=== PATIENT | male | born 1955 | race Caucasian/White ===

== ENCOUNTER → 2016-10-21 | Outpatient (CLI) | payer OTHER | LOC: CIMAGING 14:11 | PROVIDERS: ATTEND Orthopaedic Surgery | DX: M17.11 Unilateral primary osteoarthritis, right knee (principal); M71.21 Synovial cyst of popliteal space [Baker], right knee | CPT/HCPCS: 73700-PO ==

== ENCOUNTER → 2016-12-08 | Outpatient (CLI) | payer OTHER | LOC: FIMAGING 07:00 | PROVIDERS: ATTEND Orthopaedic Surgery | DX: Z01.818 Encounter for other preprocedural examination (principal); M17.11 Unilateral primary osteoarthritis, right knee; M16.11 Unilateral primary osteoarthritis, right hip ==

== ENCOUNTER 2016-12-12 09:57 | Inpatient (IN) | payer OTHER ==
--- NOTE | 2016-12-12 06:45 | PDIAF ---
- Diagnosis Diagnosis: right knee djd Code Status: Full Code - Medication Management Discharge Medications: Medications to Continue on Transfer ALPRAZolam [Xanax 0.5 MG (*)] 0.5 mg PO DAILY PRN 11/14/16 [Last Taken Unknown] Aspirin [Aspirin 81mg (*)] 81 mg PO DAILY 11/14/16 [Last Taken Unknown] Hydrocodone/APAP 5/325 [[place] 5/325 (*)] 1 each PO Q4H PRN 11/14/16 [Last Taken Unknown] Losartan/Hydrochlorothiazide [Hyzaar 100-25 Tablet] 1 each PO DAILY 11/14/16 [ Last Taken Unknown] Lovastatin 20 mg PO DAILY 11/14/16 [Last Taken Unknown] Metoprolol Succinate Xr [Toprol Xl 100 mg (*)] 100 mg PO DAILY 11/14/16 [Last Taken Unknown] amLODIPine BESYLATE [Norvasc 5 mg (*)] 5 mg PO DAILY 11/14/16 [Last Taken Unknown] celeCOXIB [Celebrex (*)] 200 mg PO DAILY 11/14/16 [Last Taken Unknown] Discharge Medications: Refer to the Discharge Home Medication list for PRN reason. - Orders Services needed: Physical Therapy Activity/Weight Bearing Restrictions: daily dressing changes. may shower without bandage. no soaking or immersion. wbat. rom as tolerated. seek attn for increasing leg pain, swelling, drainage, other focal complaint - Follow Up Care Current Providers and Referrals: NONE *PRIMARY CARE P,. [Primary Care Provider] -
--- NOTE | 2016-12-12 06:45 | PDHPUP ---
History & Physical Update H&P update statement: This history and physical update is based on an assessment of the patient which was completed after admission or registration (within 24 hours), but prior to the surgery/procedure.
[~2016-12-12 09:57] MED LIST: ROPIVACAINE 0.2% 80 MG, EPINEPHrine 0.2 MG, KETOROLAC TROMETHAMINE 30 MG, morphINE 10 M... IU ONE; TRANEXAMIC ACID 1,250 MG in NS 100 ML IV ONE; ceFAZolin 2 GM/DEXTROSE 100 ML IV ONE; ceFAZolin 2 GM/SWFI 2 GM/20 ML SYR IVP ONE
[2016-12-12] MEDS ORDERED: FAMOTIDINE 20 MG TAB PO ONE (10:17)
[2016-12-12] MEDS ORDERED: ACETAMINOPHEN 325 MG TAB PO ONE (10:17)
[2016-12-12] MEDS ORDERED: LIDOCAINE 1% 2 ML INJ ID PRN ×2 (10:20→10:36)
[2016-12-12] MEDS ORDERED: LR 1,000 ML IV ONE (10:20)
[2016-12-12] MEDS ORDERED: ceFAZolin 2 GM/SWFI 20 ML SYR IVP ONE (10:42)
[2016-12-12] MEDS ORDERED: THROMBIN (BOVINE) 5,000 UNIT VIAL TP ONE (11:53)
[2016-12-12] MEDS ORDERED: ceFAZolin 1 GM/5 ML SYR ONE ×2 (11:54→13:35)
[2016-12-12] MEDS ORDERED: CALCIUM CHLORIDE 1 GM/10 ML INJ ONE (11:54)
--- NOTE | 2016-12-12 12:07 | PDANEPAE ---
ANE Past Medical History - Cardiovascular History Hx Hypertension: Yes Hx Arrhythmias: No Hx Chest Pain: No Hx Coronary Artery / Peripheral Vascular Disease: No Hx CHF / Valvular Disease: No Hx Palpitations: No - Pulmonary History Hx COPD: No Hx Asthma/Reactive Airway Disease: No Hx Recent Upper Respiratory Infection: No Hx Oxygen in Use at Home: No Hx Sleep Apnea: No Sleep Apnea Screening Result - Last Documented: Positive - Neurologic History Hx Cerebrovascular Accident: No Hx Seizures: No Hx Dementia: No Neurologic History Comment: NEUROPATHY BRIT LE - Endocrine History Hx Diabetes: No - Renal History Hx Renal Disorders: No - Liver History Hx Hepatic Disorders: No - Neurological & Psychiatric Hx Hx Neurological and Psychiatric Disorders: No Neurological / Psychiatric History Comment: ANXIETY - Cancer History Hx Cancer: No - Congenital Disorder History Hx Congenital Disorders: No - GI History Hx Gastrointestinal Disorders: No - Other Health History Other Health History: SCIATICA - Chronic Pain History Chronic Pain: Yes (R KNEE) - Surgical History Prior Surgeries: 2006 L RTC. 2002 VASECTOMY ANE Review of Systems Review of Systems: - Exercise capacity METS (RN): 4 METS ANE Patient History - Allergies Allergies/Adverse Reactions: No Known Allergies Allergy (Verified 11/14/16 12:20) - Home Medications Home Medications: ALPRAZolam [Xanax 0.5 MG (*)] 0.5 mg PO DAILY PRN 11/14/16 [Last Taken 1 Day Ago ~12/11/16] Aspirin [Aspirin 81mg (*)] 81 mg PO DAILY 11/14/16 [Last Taken 2 Weeks Ago ~11/06] Hydrocodone/APAP 5/325 [[place] 5/325 (*)] 1 each PO Q4H PRN 11/14/16 [Last Taken 12/07/16] Losartan/Hydrochlorothiazide [Hyzaar 100-25 Tablet] 1 each PO DAILY 11/14/16 [ Last Taken 12/12/16 07:00] Lovastatin 20 mg PO DAILY 11/14/16 [Last Taken 12/12/16 07:00] Metoprolol Succinate Xr [Toprol Xl 100 mg (*)] 100 mg PO DAILY 11/14/16 [Last Taken 12/12/16 07:00] amLODIPine BESYLATE [Norvasc 5 mg (*)] 5 mg PO DAILY 11/14/16 [Last Taken 07:00] celeCOXIB [Celebrex (*)] 200 mg PO DAILY 11/14/16 [Last Taken 2 Weeks Ago ~11/28] - NPO status NPO Since - Liquids (Date): 12/12/16 NPO Since - Liquids (Time): 07:00 NPO Since - Solids (Date): 12/11/16 NPO Since - Solids (Time): 18:00 - Smoking Hx Smoking Status: Never smoked - Family Anes Hx Family Hx Anesthesia Complications: NEG ANE Labs/Vital Signs - Vital Signs Blood Pressure: 152/96 Heart Rate: 61 Respiratory Rate: 18 O2 Sat (%): 92 Height: 190.5 cm Weight: 124.738 kg ANE Physical Exam - Airway Mallampati Score: Class 2 - ASA Status ASA Status: II ANE Anesthesia Plan Anesthesia Plan: GA w LMA, spinal
[2016-12-12] MEDS ORDERED: fentaNYL 100 MCG/2 ML INJ ONE (12:17)
[2016-12-12] MEDS ORDERED: MIDAZOLAM 2 MG/2 ML VIAL ONE (12:17)
[2016-12-12] MEDS ORDERED: PROPOFOL 200 MG/20 ML VIAL ONE (12:18)
[2016-12-12] MEDS ORDERED: traMADol 50 MG TAB PO PRN (12:32)
[2016-12-12] MEDS ORDERED: MAGNESIUM HYDROXIDE 30 ML UDCUP PO PRN (12:32)
[2016-12-12] MEDS ORDERED: LACTULOSE 20 GM/30 ML UDCUP PO PRN (12:32)
[2016-12-12] MEDS ORDERED: PROMETHAZINE HCL 25 MG SUPPR PR PRN (12:32)
[2016-12-12] MEDS ORDERED: POLYETHYLENE GLYCOL 3350 17 GM PKT PO PRN (12:32)
[2016-12-12] MEDS ORDERED: METOCLOPRAMIDE 10 MG/2 ML VIAL IVP PRN (12:32)
[2016-12-12] MEDS ORDERED: BISACODYL 10 MG SUPP PR PRN (12:32)
[2016-12-12] MEDS ORDERED: PROMETHAZINE HCL 25 MG/ML INJ IVP PRN (12:32)
[2016-12-12] MEDS ORDERED: ONDANSETRON 4 MG/2 ML VIAL IVP PRN (12:32)
[2016-12-12] MEDS ORDERED: ONDANSETRON DISINTEGRATING 4 MG TAB PO PRN (12:32)
[2016-12-12] MEDS ORDERED: DIPHENOXYLATE/ATROPINE LOMOTIL 1 TAB PO PRN (12:32)
[2016-12-12] MEDS ORDERED: diphenhydrAMINE 25 MG CAP PO PRN (12:32)
[2016-12-12] MEDS ORDERED: TEMAZEPAM 15 MG CAP PO PRN (12:32)
[2016-12-12] MEDS ORDERED: ALPRAZolam 0.5 MG TAB PO PRN (12:33)
[2016-12-12] MEDS ORDERED: PHENYLEPHRINE HCL 100 MCG/ML SYR ONE (12:42)
[2016-12-12] MEDS ORDERED: LR 1,000 ML IV SCH (13:00)
[2016-12-12] MEDS ORDERED: ceFAZolin 2 GM/DEXTROSE 100 ML IV SCH (14:00)
[2016-12-12] MEDS ORDERED: ONDANSETRON 4 MG/2 ML VIAL ONE (14:10)
[2016-12-12] MEDS ORDERED: METOCLOPRAMIDE 10 MG/2 ML VIAL ONE (14:10)
[2016-12-12] MEDS ORDERED: LR 500 ML IV PRN (14:23)
[2016-12-12] MEDS ORDERED: fentaNYL 100 MCG/2 ML INJ IVP PRN (14:23)
[2016-12-12] MEDS ORDERED: NALOXONE HCL 0.4 MG/ML INJ IVP PRN (14:23)
--- NOTE | 2016-12-12 14:24 | POSTANESTH ---
Post Anesthetic Evaluation Cardiovascular Status: Normal, Stable Respiratory Status: Normal, Stable Level of Consciousness/Mental Status: Can Participate in Eval Pain Control: Adequate, Prn Tx Ordered Nausea/Vomiting Control: Adequate, Prn Tx Ordered Complications Possibly Related to Anesthesia: None Noted
--- NOTE | 2016-12-12 16:51 | ASMTCMCOM ---
CM Note CM Note Notes: Patient had R TKA with Dr Marshall today. PT/OT to evaluate tomorrow. Patient lives independently with . CM will follow for discharge planning. Date Signed: 12/12/2016 04:51 PM Electronically Signed By:Susan Mathew RN
[2016-12-12] MEDS: ACETAMINOPHEN 325 MG TAB PO SCH ×2 (17:01→23:04)
[2016-12-12] MEDS: oxyCODONE IR 5 MG TAB PO PRN ×3 (17:06→23:04)
[2016-12-12] MEDS: TRANEXAMIC ACID 650 MG TAB PO SCH ×2 (17:21→20:22)
[2016-12-12] MEDS: ceFAZolin 2 GM in D5W 100 ML IV SCH (20:21)
[2016-12-12] MEDS: SENNOSIDES/DOCUSATE SODIUM TAB PO SCH (20:22)
[2016-12-12] MEDS: FAMOTIDINE 20 MG TAB PO SCH (20:23)
[2016-12-12] MEDS: ASPIRIN 325 MG TAB PO SCH (20:38)
[2016-12-13] MEDS: DIAZEPAM 5 MG TAB PO PRN ×2 (02:25→16:52)
[2016-12-13] MEDS: oxyCODONE IR 5 MG TAB PO PRN ×6 (02:25→19:54)
[2016-12-13] MEDS: HYDROCODONE/APAP 5/325 TAB PO PRN ×2 (05:13→05:16)
[2016-12-13] MEDS: TRANEXAMIC ACID 650 MG TAB PO SCH (05:15)
[2016-12-13] MEDS: ACETAMINOPHEN 325 MG TAB PO SCH ×3 (05:16→16:52)
[2016-12-13] MEDS: ceFAZolin 2 GM in D5W 100 ML IV SCH (05:17)
[2016-12-13 05:30] LABS: HEMATOCRIT 37.5 % (40.0-51.0); HEMOGLOBIN 12.8 g/dL (13.7-17.5)
--- NOTE | 2016-12-13 07:35 | SOAPPROG ---
SOAP Progress Note Assessment/Plan: Assessment: s/p right tka Plan:pain control wbat mobilize with pt dvt precautions 12/13/16 07:33 Subjective: pain overnight no cp or sob Objective: Vital Signs Temp Pulse Resp BP Pulse Ox 36.8 C 64 16 100/60 93 12/13/16 03:01 12/13/16 03:01 12/13/16 03:01 12/13/16 03:01 12/13/16 03:01 Laboratory Results 12/13/16 05:15 12/12/16 12/13/16 12/14/16 05:59 05:59 05:59 Intake Total 4498 Output Total 1600 Balance 2898 dressing intact intact pf,df,ehl toes warm and pink neg homans bilaterally xrays stable anatomic alignment no fx or lucency ICD10 Worksheet Patient Problems: Problems Problem Status Onset Arthritis of knee, right Acute - ICD10 Problem Qualifiers (1) Arthritis of knee, right
[2016-12-13] MEDS: PRAVASTATIN SODIUM 20 MG TAB PO SCH (08:24)
[2016-12-13] MEDS: LOSARTAN/HCTZ 50/12.5 1 TAB PO SCH (08:24)
[2016-12-13] MEDS: amLODIPine BESYLATE 5 MG TAB PO SCH (08:24)
[2016-12-13] MEDS: FAMOTIDINE 20 MG TAB PO SCH ×2 (08:25→19:55)
[2016-12-13] MEDS: ASPIRIN 325 MG TAB PO SCH (08:25)
[2016-12-13] MEDS: METOPROLOL SUCCINATE XR 50 MG TAB PO SCH (08:25)
[2016-12-13] MEDS: SENNOSIDES/DOCUSATE SODIUM TAB PO SCH ×2 (08:25→19:54)
[2016-12-14] MEDS: ACETAMINOPHEN 325 MG TAB PO SCH ×3 (01:27→12:10)
[2016-12-14] MEDS: DIAZEPAM 5 MG TAB PO PRN (01:30)
[2016-12-14 04:47] LABS: HEMATOCRIT 37.6 % (40.0-51.0); HEMOGLOBIN 12.8 g/dL (13.7-17.5)
[2016-12-14] MEDS: oxyCODONE IR 5 MG TAB PO PRN ×3 (05:35→12:09)
--- NOTE | 2016-12-14 06:57 | PDIAF ---
- Diagnosis Diagnosis: right knee djd Code Status: Full Code - Medication Management Discharge Medications: Medications to Continue on Transfer ALPRAZolam [Xanax 0.5 MG (*)] 0.5 mg PO DAILY PRN 11/14/16 [Last Taken 1 Day Ago ~12/11/16] Aspirin [Aspirin 81mg (*)] 81 mg PO DAILY 11/14/16 [Last Taken 2 Weeks Ago ~11/06] Hydrocodone/APAP 5/325 [[place] 5/325 (*)] 1 each PO Q4H PRN 11/14/16 [Last Taken 12/07/16] Losartan/Hydrochlorothiazide [Hyzaar 100-25 Tablet] 1 each PO DAILY 11/14/16 [ Last Taken 12/12/16 07:00] Lovastatin 20 mg PO DAILY 11/14/16 [Last Taken 12/12/16 07:00] Metoprolol Succinate Xr [Toprol Xl 100 mg (*)] 100 mg PO DAILY 11/14/16 [Last Taken 12/12/16 07:00] amLODIPine BESYLATE [Norvasc 5 mg (*)] 5 mg PO DAILY 11/14/16 [Last Taken 07:00] celeCOXIB [Celebrex (*)] 200 mg PO DAILY 11/14/16 [Last Taken 2 Weeks Ago ~11/28] Aspirin [Aspirin 325 mg (*)] 325 mg PO DAILY tab 12/14/16 [Last Taken Unknown] Diazepam [Valium 5 MG (*)] 5 mg PO Q6HRS PRN #30 tab 12/14/16 [Last Taken Unknown] celeCOXIB [Celebrex (*)] 200 mg PO DAILY cap 12/14/16 [Last Taken Unknown] oxyCODONE CR [Oxycontin] 10 mg PO BID #30 tab 12/14/16 [Last Taken Unknown] oxyCODONE IR [Oxycodone Ir (*)] 5 - 10 mg PO Q3HRS PRN #90 tab 12/14/16 [Last Taken Unknown] Discharge Medications: Refer to the Discharge Home Medication list for PRN reason. - Orders Services needed: Physical Therapy Diet Recommendation: no restrictions on diet Diet Texture: Regular Texture Diet Activity/Weight Bearing Restrictions: daily dressing changes. may shower without bandage. no soaking or immersion. wbat. rom as tolerated. seek attn for increasing leg pain, swelling, drainage, other focal complaint - Follow Up Care Current Providers and Referrals: NONE *PRIMARY CARE P,. [Unknown] -
[2016-12-14 07:34] VITALS: RESP 16
--- NOTE | 2016-12-14 07:41 | GDS ---
[f rep st] DISCHARGE SUMMARY ADMITTING DIAGNOSIS: Right knee degenerative joint disease. DISCHARGE DIAGNOSIS: Right knee degenerative joint disease. PROCEDURE: Right total knee arthroplasty, MAKOplasty. HISTORY OF PRESENT ILLNESS: The patient is a 61-year-old gentleman with end-stage arthritis to his r ight knee. Clinical and radiographic features consistent with this. He has failed all attempts at c onservative management. I have, therefore, recommended total knee replacement. He understood the ri sks, benefits, alternatives, and wished to proceed. Written consent was signed and placed in patient 's chart. HOSPITAL COURSE: The patient was admitted to the hospital floor after uncomplicated total knee arthr oplasty. His postoperative course was characterized by poor pain control. At the time of discharge, he is tolerating an oral diet. His pain is well controlled on oral medicines. He is voiding withou t difficulty. His dressings are clean, dry, and intact. He has no calf swelling or tenderness. Neg ative Homans. X-rays are stable with anatomic alignment. DISCHARGE ACTIVITIES: Weightbearing as tolerated. Range of motion as tolerated. Daily dressing rohit nges. May shower without the bandage. No soaking or immersion. DUANE hose x2 weeks. DISCHARGE MEDICATIONS: Oxycodone 5 mg 1-2 every 3 hours p.r.n. pain, OxyContin 10 mg p.o. b.i.d., as pirin 325 mg p.o. daily, Valium 5 mg 1 p.o. q.8 hours, and his regular outpatient medicines. FOLLOWUP: Follow up in the orthopedic clinic in 2 weeks. Seek attention for increasing redness, swe lling, drainage, discharge, or other focal complaints. /[id number]/MODL
[2016-12-14] MEDS: FAMOTIDINE 20 MG TAB PO SCH (08:58)
[2016-12-14] MEDS: METOPROLOL SUCCINATE XR 50 MG TAB PO SCH (08:58)
[2016-12-14] MEDS: LOSARTAN/HCTZ 50/12.5 1 TAB PO SCH (08:58)
[2016-12-14] MEDS: SENNOSIDES/DOCUSATE SODIUM TAB PO SCH (08:58)
[2016-12-14] MEDS: PRAVASTATIN SODIUM 20 MG TAB PO SCH (08:59)
[2016-12-14] MEDS: ASPIRIN 325 MG TAB PO SCH (08:59)
[2016-12-14] MEDS: amLODIPine BESYLATE 5 MG TAB PO SCH (08:59)
[2016-12-14 11:38] VITALS: BP 115/85; PULSE 80; TEMP 98.3; O2SAT 91
--- NOTE | 2016-12-14 11:44 | PDIAF ---
- Diagnosis Diagnosis: right knee djd Code Status: Full Code - Medication Management Discharge Medications: Medications to Continue on Transfer ALPRAZolam [Xanax 0.5 MG (*)] 0.5 mg PO DAILY PRN 11/14/16 [Last Taken 1 Day Ago ~12/11/16] Aspirin [Aspirin 81mg (*)] 81 mg PO DAILY 11/14/16 [Last Taken 2 Weeks Ago ~11/06] Hydrocodone/APAP 5/325 [[place] 5/325 (*)] 1 each PO Q4H PRN 11/14/16 [Last Taken 12/07/16] Losartan/Hydrochlorothiazide [Hyzaar 100-25 Tablet] 1 each PO DAILY 11/14/16 [ Last Taken 12/12/16 07:00] Lovastatin 20 mg PO DAILY 11/14/16 [Last Taken 12/12/16 07:00] Metoprolol Succinate Xr [Toprol Xl 100 mg (*)] 100 mg PO DAILY 11/14/16 [Last Taken 12/12/16 07:00] amLODIPine BESYLATE [Norvasc 5 mg (*)] 5 mg PO DAILY 11/14/16 [Last Taken 07:00] celeCOXIB [Celebrex (*)] 200 mg PO DAILY 11/14/16 [Last Taken 2 Weeks Ago ~11/28] Aspirin [Aspirin 325 mg (*)] 325 mg PO DAILY tab 12/14/16 [Last Taken Unknown] Diazepam [Valium 5 MG (*)] 5 mg PO Q6HRS PRN #30 tab 12/14/16 [Last Taken Unknown] celeCOXIB [Celebrex (*)] 200 mg PO DAILY cap 12/14/16 [Last Taken Unknown] oxyCODONE CR [Oxycontin] 10 mg PO BID #30 tab 12/14/16 [Last Taken Unknown] oxyCODONE IR [Oxycodone Ir (*)] 5 - 10 mg PO Q3HRS PRN #90 tab 12/14/16 [Last Taken Unknown] Discharge Medications: Refer to the Discharge Home Medication list for PRN reason. - Orders Services needed: Home Care, Physical Therapy Home Care Face to Face: I certify that this patient was under my care and that I had the required [id number] encounter meeting the encounter requirements on the discharge day. My findings support the fact that the patient is homebound as defined in Home Care Face to Face Continued: CMS Chapter 7 Medicare Benefits Manual 30.1.1 , The condition of the patient is such that there exists a normal inability to leave home and consequently, leaving home would require a considerable and taxing effort. Diet Recommendation: no restrictions on diet Diet Texture: Regular Texture Diet Activity/Weight Bearing Restrictions: daily dressing changes. may shower without bandage. no soaking or immersion. wbat. rom as tolerated. seek attn for increasing leg pain, swelling, drainage, other focal complaint - Follow Up Care Current Providers and Referrals: NONE *PRIMARY CARE P,. [Unknown] -
--- NOTE | 2016-12-14 14:10 | ASMTCMCOM ---
CM Note CM Note Notes: Spoke with pt re homecare options. [facility] his insurance. Sent referral and they are able to accept. Pt discharging home today. Date Signed: 12/14/2016 02:10 PM Electronically Signed By:MAISHA Waller
--- NOTE | 2016-12-14 14:11 | ASDISCHSUM ---
Discharge Information Plan Status:Home with Home Health Medically Cleared to Leave:12/14/2016 Discharge Date:12/14/2016 12:15 PM D/C Disposition:[facility]/C Disposition:Home, Routine, Self-Care Projected Discharge Date:12/14/2016 11:00 AM Transportation at D/C:Family Discharge Delay Reason: Follow-Up Date:12/14/2016 11:00 AM Discharge Slot: Final Diagnosis: Placement Information Referral Type:*Home Health Care Services Referral ID:[id number] Provider Name:[facility] Address 1:[address] Address 2: City:[place] Selection Factors: State:[place] Patient Contact Information Contact Name:LILLIE Relationship: Address:[address] City:[place] Alternate Phone: State/Zip Code:[place] [address] Email: Financial Information Financial Class:HMO and PPO Plans Primary Plan Desc:HMO [place] [employer] Primary Plan Number:[id number] Secondary Plan Desc: Secondary Plan Number: Assessment Information [facility] Progress Note CM Note CM Note Notes: Patient had R TKA with Dr Marshall today. PT/OT to evaluate tomorrow. Patient lives independently with . CM will follow for discharge planning. Date Signed: 12/12/2016 04:51 PM Electronically Signed By:Susan Mathew RN [facility] CM Progress Note CM Note CM Note Notes: Spoke with pt re homecare options. [facility] takes his insurance. Sent referral and they are able to accept. Pt discharging home today. Date Signed: 12/14/2016 02:10 PM Electronically Signed By:MAISHA Waller Intervention Information
--- NOTE | 2016-12-16 15:38 | GOP ---
[f rep st] OPERATIVE REPORT DATE OF OPERATION: 12/12/2016 SURGEON: Chaka Marshall MD MACERATOR OPERATOR: Martin Gregory, CASING COOKER, [facility]; clinical research assistant was medical necessity for the entirety of shanna subramanian case. PREOPERATIVE DIAGNOSIS: Right knee arthritis. POSTOPERATIVE DIAGNOSIS: Right knee arthritis. PROCEDURE PERFORMED: Right total knee arthroplasty, MAKOplasty. FINDINGS: SPECIMENS: To Pathology, the bony cuts. DESCRIPTION OF PROCEDURE: The patient was identified in the preanesthesia area. The right knee was clearly demarcated as the operative site with indelible marker. He was given 2 g of Ancef intravenou sly en route to the operative suite. In the OR, general endotracheal anesthesia was administered aft er placement of a spinal block. He was positioned in the supine position. Attention was turned to t moris right knee, which was sterilely prepped and draped in usual fashion. A tourniquet was applied to the upper thigh. The limb was exsanguinated, and tourniquet inflated to 275 mmHg. A standard anterior midline incision was made. Thick subcutaneous flaps were elevated, followed by m edial parapatellar arthrotomy. There was tricompartmental arthritis, and the decision was made to pr oceed with a total knee replacement. Separate percutaneous incisions were made in the mid femur and mid sharp, and 2 guide pins were placed in each area. The femoral and tibial reference arrays were th en affixed. Femoral and tibial reference check points were then placed. The bony landmarks were the n entered into the computer in standard fashion. The knee was balanced through the flexion-extension arc with soft tissue release and adjustment of the components. Using the MAKOplasty robot, the femo ral and tibial cuts were then made. A size 5 femur cutting block was then affixed, and the notch cut made. A trial reduction with a size 5 femur revealed appropriate positioning and alignment. A size 6 tibial base plate was then pinned in the correct orientation. The central pins were then placed, and trial reduction carried out over a 6 x 9 mm thick polyethylene insert. The patella was then ever judy, cut in a freehand cutting technique, and drill holes made for a size 38 all poly patella. The k nee tracked centrally, was stable through the flexion/extension arc. All trial components were withd rawn. The bony surfaces were thoroughly cleansed and dried. In a sequential fashion, the tibial, fe moral and patellar components were cemented. A final 6 x 9 mm polyethylene insert was placed and con firmed to be fully seated. All marginal cement was withdrawn. The capsular tissue was injected with a joint cocktail of ropivacaine, morphine, Toradol, and epineph rine. The medial parapatellar arthrotomy closed using #1 Ethibond suture. The knee instilled with a platelet-rich plasma solution. Subcutaneous tissue closed using Quill and Monocryl suture, and the skin was stapled. Sterile dressing was applied. The patient was awakened, extubated, and taken to r ecovery room in good, stable condition. OPERATIVE INDICATIONS: The patient is a 61-year-old gentleman who has end-stage arthritis to his rig ht knee. Clinical and radiographic features are consistent with this. He has failed all attempts at conservative management. I have, therefore, recommended total knee replacement. He understood the risks, benefits, alternatives, and wished to proceed. Written consent was signed and placed in arnaldo jang's chart. TOTAL TOURNIQUET TIME: 65 minutes. COMPLICATIONS: None. IMPLANTS: The Wendy Triathlon PS femoral component, size 5; size 6 tibial base plate; X3 tibial be aring insert, 6 x 9 mm; Triathlon X3 asymmetric patella, size A38, 11 mm thick. DISPOSITION: To the recovery room, then the floor. /[id number]/MODL
== END 2016-12-14 12:15 | disposition home or self-care (01) | DRG 470 ==
LOC: F3N 10:05
PROVIDERS: ADMIT Orthopaedic Surgery; ATTEND Orthopaedic Surgery
PROC: 8E0Y0CZ Robotic Assisted Procedure of Lower Extremity, Open Approach (ICD-10-PCS; principal; 2016-12-12 13:00)
PROC: 0SRC0J9 Replacement of Right Knee Joint with Synthetic Substitute, Cemented, Open Approach (ICD-10-PCS; principal; 2016-12-12 13:00)
DX: M17.11 Unilateral primary osteoarthritis, right knee (principal); E78.5 Hyperlipidemia, unspecified; I10 Essential (primary) hypertension; E66.9 Obesity, unspecified; Z68.37 Body mass index [BMI] 37.0-37.9, adult
CPT/HCPCS: 97110-GP; 97116-GP; 97161-GP; 97165-GO; 97530-GP; 97535-GO; C1713; J0171; J0690; J1885; J2250; J2370; J2405; J2704; J2765; J2795; J3010

== ENCOUNTER → 2017-01-26 | Outpatient (CLI) | payer OTHER | LOC: BMCIMAGING 09:45 | PROVIDERS: ATTEND Orthopaedic Surgery | DX: Z96.651 Presence of right artificial knee joint (principal); M25.461 Effusion, right knee ==

== ENCOUNTER → 2017-03-07 | Outpatient (CLI) | payer OTHER | LOC: BMCIMAGING 10:34 | PROVIDERS: ATTEND Orthopaedic Surgery | DX: Z09 Encounter for follow-up examination after completed treatment for conditions other than malignant neoplasm (principal); Z96.651 Presence of right artificial knee joint ==

== ENCOUNTER → 2017-06-27 | Outpatient (CLI) | payer OTHER | LOC: BMCIMAGING 09:51 | PROVIDERS: ATTEND Orthopaedic Surgery | DX: Z47.1 Aftercare following joint replacement surgery (principal); Z96.651 Presence of right artificial knee joint ==

== ENCOUNTER → 2018-01-03 | Outpatient (CLI) | payer OTHER | LOC: BMCIMAGING 09:25 | PROVIDERS: ATTEND Orthopaedic Surgery | DX: Z47.1 Aftercare following joint replacement surgery (principal); Z96.651 Presence of right artificial knee joint ==

== ENCOUNTER 2018-02-05 11:41 | Inpatient (IN) | payer OTHER ==
--- NOTE | 2018-02-05 06:35 | PDHPUP ---
History & Physical Update H&P update statement: This history and physical update is based on an assessment of the patient which was completed after admission or registration (within 24 hours), but prior to the surgery/procedure. H&P update: no change in patient's condition since H&P completed
--- NOTE | 2018-02-05 06:36 | PDIAF ---
- Diagnosis Diagnosis: right knee pain Code Status: Full Code - Medication Management Discharge Medications: electronically signed and located in the Home Medication List. - Orders Services needed: Home Care, Physical Therapy Home Care Face to Face: I certify that this patient was under my care and that I had the required [id number] encounter meeting the encounter requirements on the discharge day. My findings support the fact that the patient is homebound as defined in Home Care Face to Face Continued: CMS Chapter 7 Medicare Benefits Manual 30.1.1 , The condition of the patient is such that there exists a normal inability to leave home and consequently, leaving home would require a considerable and taxing effort. Diet Recommendation: no restrictions on diet Diet Texture: Regular Texture Diet Additional Instructions: TOTAL JOINT ARTHROPLASTY DISCHARGE INSTRUCTIONS 1. Your surgeon follows the [facility] protocol for reducing your risk of DVT (blood clots) following surgery. Medication will be ordered to prevent blood clots. A sudden increase in calf pain and/or swelling could indicate a blood clot in your leg. If this occurs, please call your surgeon or his/her quality assistant. An ultrasound of the leg may be necessary to diagnose a blood clot. If you have conditions that make you a higher risk for blood clots, your surgeon may use more aggressive ways to prevent them. Notify your surgeon if you think you are a high risk for blood clots. 2. Wear your white surgical stockings (DUANE hose) for 2 weeks. This decreases your swelling and may help prevent blood clots. It is ok to remove DUANE hose at night time to give your legs a break. 3. Swelling and bruising in the surgical leg is common. If you feel that it is excessive, please notify your surgeon. 4. Elevate your surgical leg with the ankle above the hip several times every day. Please keep the leg straight when you elevate by putting pillows under your foot. Do not put pillows under your knee. This will make being able to fully straighten more difficult. This is uncomfortable, but try to do it as much as possible. 5. For total knee replacements use compressive wrap on your knee for 3-5 days after surgery, then you can discontinue it. 6. Use a walker or crutches for 1-2 weeks. Progress your weight-bearing as tolerated. You may start to use a cane when you feel stable and safe. 7. You will receive physical therapy instructions in the hospital. Continue those exercises at home. There are additional exercises in the total joint booklet you were given before surgery. Outpatient physical therapy will begin 7- 10 days after surgery. Please schedule this in advance. 8. Use ice on your knee at least 3-5 times every day for 30 minutes. This helps reduce pain and swelling. Also use it at night before falling asleep. 9. Leave your surgical dressing in place for 2 weeks. Your dressing is water resistant, but not waterproof. Cover it with Saran Wrap or [id number] before showering. You may shower as soon as you feel safe entering a shower. If you notice bleeding from your incision 2 or 3 days after surgery, please notify your surgeon. 10. Due to narcotics, decreased activity and altered diet, most patients experience constipation after surgery. Use tjjl-[id number] stool softeners while you are on narcotics. 11. You may drive a car when you are comfortable bearing weight, have good muscular control of your leg and are off narcotics. This usually occurs 2-4 weeks after surgery, depending on which leg was operated on. 12. If there are questions not addressed here, please refer the [facility] book given for more information. If you still have questions, please contact your surgeon s office. 13. If you have a life-threatening emergency, please call 911 and go to the emergency room immediately. For non-life threatening emergencies, please call your physicians office for advice before going to the emergency room. - Follow Up Care Current Providers and Referrals: Chaka Marshall MD [Medical Doctor] - Mc Dominique MD [Primary Care Provider] -
[~2018-02-05 11:41] MED LIST changes: +TRANEXAMIC ACID 1,000 MG in NS 100 ML IV ONE; -TRANEXAMIC ACID 1,250 MG in NS 100 ML IV ONE; +TRANEXAMIC ACID 2,000 MG in NS 100 ML IV ONE; -ceFAZolin 2 GM/DEXTROSE 100 ML IV ONE; -ceFAZolin 2 GM/SWFI 2 GM/20 ML SYR IVP ONE
[2018-02-05] MEDS ORDERED: FAMOTIDINE 20 MG TAB PO ONE (11:51)
[2018-02-05] MEDS ORDERED: ceFAZolin 2 GM/DEXTROSE 100 ML IV ONE (11:51)
[2018-02-05] MEDS ORDERED: ACETAMINOPHEN 325 MG TAB PO ONE (11:51)
[2018-02-05] MEDS ORDERED: LIDOCAINE 1% 2 ML INJ ID PRN (11:52)
[2018-02-05] MEDS ORDERED: LR 1,000 ML IV ONE (11:52)
[2018-02-05] MEDS ORDERED: ceFAZolin 3 GM in D5W 100 ML IV ONE (12:30)
[2018-02-05] MEDS ORDERED: ceFAZolin 1 GM/5 ML SYR ONE (13:18)
[2018-02-05] MEDS ORDERED: MIDAZOLAM 2 MG/2 ML VIAL IVP ONE (14:18)
--- NOTE | 2018-02-05 14:18 | PDANEPAE ---
ANE History of Present Illness R knee arthroplasty revision ANE Past Medical History - Cardiovascular History Hx Hypertension: Yes Hx Arrhythmias: No Hx Chest Pain: No Hx Coronary Artery / Peripheral Vascular Disease: No Hx CHF / Valvular Disease: No Hx Palpitations: No - Pulmonary History Hx COPD: No Hx Asthma/Reactive Airway Disease: No Hx Recent Upper Respiratory Infection: No Hx Oxygen in Use at Home: No Hx Sleep Apnea: No Sleep Apnea Screening Result - Last Documented: Positive Pulmonary History Comment: RECENT LUNG CONGESTION WAS SEEN BY PCP LUNGS CLEAR WITHOUT. 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 2006 L RTC. 2002 VASECTOMY ANE Review of Systems Review of systems is: negative Review of Systems: - Exercise capacity METS (RN): 4 METS ANE Patient History - Allergies Allergies/Adverse Reactions: No Known Allergies Allergy (Verified 11/14/16 12:20) - Home Medications Home medications: home medication list seen and reviewed Home Medications: ALPRAZolam [Xanax 0.5 MG (*)] 0.5 mg PO DAILY PRN 11/14/16 [Last Taken 02/03/18] amLODIPine BESYLATE [Norvasc 5 mg (*)] 5 mg PO DAILY 11/14/16 [Last Taken 07:00] Atorvastatin Calcium [Lipitor 10 mg (*)] 10 mg PO DAILY 01/26/18 [Last Taken 07:00] Ibuprofen [Motrin (*)] 400 - 600 mg PO DAILY PRN 01/26/18 [Last Taken 01/29/18] Losartan Potassium DAILY 02/02/18 [Last Taken 02/04/18 07:00] - NPO status NPO Since - Liquids (Date): 02/05/18 NPO Since - Liquids (Time): 08:45 NPO Since - Solids (Date): 02/04/18 NPO Since - Solids (Time): 18:00 - Anes Hx Anes Hx: no prior problems - Smoking Hx Smoking Status: Never smoked - Family Anes Hx Family Anes Hx: none Family Hx Anesthesia Complications: NEG ANE Labs/Vital Signs - Vital Signs Vital Signs: reviewed preoperatively; see RN documention for details Height: 190.5 cm Weight: 131.542 kg ANE Physical Exam - Airway Neck exam: FROM Mallampati Score: Class 3 - Pulmonary Pulmonary: no respiratory distress - Cardiovascular Cardiovascular: regular rate and rhythym - ASA Status ASA Status: III ANE Anesthesia Plan Anesthesia Plan: GA w LMA (AC block for post op pain discussed. Will avoid due to neuropathy.)
[2018-02-05] MEDS ORDERED: THROMBIN (BOVINE) 5,000 UNIT VIAL TP ONE (14:40)
[2018-02-05] MEDS ORDERED: CALCIUM CHLORIDE 1 GM/10 ML INJ ONE (14:40)
[2018-02-05] MEDS ORDERED: fentaNYL 100 MCG/2 ML INJ ONE (15:08)
[2018-02-05] MEDS ORDERED: DEXAMETHASONE 4 MG/ML VIAL ONE (15:08)
[2018-02-05] MEDS ORDERED: LIDOCAINE 2% 100 MG/5 ML SYR ONE (15:08)
[2018-02-05] MEDS ORDERED: ONDANSETRON 4 MG/2 ML VIAL ONE (15:08)
[2018-02-05] MEDS ORDERED: PROPOFOL 200 MG/20 ML VIAL ONE (15:09)
[2018-02-05] MEDS ORDERED: KETAMINE 200 MG/20 ML VIAL ONE (15:23)
[2018-02-05] MEDS ORDERED: HYDROmorphONE/DILAUDID 2 MG/ML INJ ONE ×2 (15:23→17:56)
[2018-02-05] MEDS ORDERED: PROMETHAZINE HCL 25 MG/ML INJ IVP PRN ×2 (15:49→16:39)
[2018-02-05] MEDS ORDERED: DIAZEPAM 5 MG/ML 1 ML SYR IVP PRN (15:49)
[2018-02-05] MEDS ORDERED: DEXAMETHASONE 4 MG/ML VIAL IVP PRN (15:49)
[2018-02-05] MEDS ORDERED: oxyCODONE IR 5 MG TAB PO PRN (15:49)
[2018-02-05] MEDS ORDERED: NALOXONE HCL 0.4 MG/ML INJ IVP PRN (15:49)
[2018-02-05] MEDS ORDERED: ONDANSETRON 4 MG/2 ML VIAL IVP PRN ×2 (15:49→16:39)
[2018-02-05] MEDS ORDERED: ACETAMINOPHEN 500 MG TAB PO PRN (15:49)
[2018-02-05] MEDS ORDERED: MEPERIDINE 25 MG/0.5 ML AMP IVP PRN (15:49)
[2018-02-05] MEDS ORDERED: LABETALOL HCL 20 MG/4 ML INJ IVP PRN (15:49)
[2018-02-05] MEDS ORDERED: HYDROCODONE/APAP 5/325 TAB PO PRN (15:49)
[2018-02-05] MEDS ORDERED: HYDROmorphONE/DILAUDID 2 MG/ML INJ IVP PRN (15:49)
--- NOTE | 2018-02-05 15:49 | POSTANESTH ---
Post Anesthetic Evaluation Cardiovascular Status: Similar to Pre-Op Cond Respiratory Status: Similar to Pre-op Cond. Level of Consciousness/Mental Status: Can Participate in Eval, Moderately Sleepy Pain Control: Adequate, Prn Tx Ordered Nausea/Vomiting Control: Adequate, Prn Tx Ordered Complications Possibly Related to Anesthesia: None Noted
[2018-02-05] MEDS ORDERED: diphenhydrAMINE 25 MG CAP PO PRN (16:39)
[2018-02-05] MEDS ORDERED: BISACODYL 10 MG SUPP PR PRN (16:39)
[2018-02-05] MEDS ORDERED: DIPHENOXYLATE/ATROPINE LOMOTIL 1 TAB PO PRN (16:39)
[2018-02-05] MEDS ORDERED: LACTULOSE 20 GM/30 ML UDCUP PO PRN (16:39)
[2018-02-05] MEDS ORDERED: CYCLOBENZAPRINE 10 MG TAB PO PRN (16:39)
[2018-02-05] MEDS ORDERED: PROMETHAZINE HCL 25 MG SUPPR PR PRN (16:39)
[2018-02-05] MEDS ORDERED: MAGNESIUM HYDROXIDE 30 ML UDCUP PO PRN (16:39)
[2018-02-05] MEDS ORDERED: TEMAZEPAM 15 MG CAP PO PRN (16:39)
[2018-02-05] MEDS ORDERED: METOCLOPRAMIDE 10 MG/2 ML VIAL IVP PRN (16:39)
[2018-02-05] MEDS ORDERED: ONDANSETRON DISINTEGRATING 4 MG TAB PO PRN (16:39)
[2018-02-05] MEDS ORDERED: POLYETHYLENE GLYCOL 3350 17 GM PKT PO PRN (16:39)
[2018-02-05] MEDS ORDERED: ALPRAZolam 0.5 MG TAB PO PRN (16:40)
--- NOTE | 2018-02-05 16:42 | POSTOPPROG ---
Post Op Note Date of Operation: 02/05/18 Surgeon: Chaka Marshall Butter Liquefier: soila Anesthesiologist: maria g Anesthesia: Spinal Pre-op Diagnosis: right tka failure Post-op Diagnosis: same Indication: same Procedure: right tka revision of tibial component Inf/Abcess present in the surg proc area at time of surgery?: No Depth: Deep Incisional (Fascial) EBL: 100-500
[2018-02-05] MEDS ORDERED: LR 1,000 ML IV SCH (17:00)
[2018-02-05] MEDS: fentaNYL 100 MCG/2 ML INJ IVP PRN ×2 (17:03→17:22)
[2018-02-05] MEDS ORDERED: oxyCODONE IR 5 MG TAB ONE (17:52)
[2018-02-05] MEDS: ACETAMINOPHEN 325 MG TAB PO SCH (18:50)
[2018-02-05] MEDS: FAMOTIDINE 20 MG TAB PO SCH (20:58)
[2018-02-05] MEDS: SENNOSIDES/DOCUSATE SODIUM TAB PO SCH (20:58)
[2018-02-05] MEDS: ASPIRIN 325 MG TAB PO SCH (21:06)
[2018-02-05] MEDS: oxyCODONE IR 5 MG TAB PO PRN (22:18)
[2018-02-05] MEDS ORDERED: VANCOMYCIN 2 GM in D5W 500 ML IV ONE (23:30)
[2018-02-06] MEDS: ACETAMINOPHEN 325 MG TAB PO SCH ×3 (01:17→12:06)
[2018-02-06] MEDS: TRANEXAMIC ACID 650 MG TAB PO SCH ×2 (01:17→08:38)
--- NOTE | 2018-02-06 07:15 | PDIAF ---
- Diagnosis Diagnosis: right knee pain Code Status: Full Code - Medication Management Discharge Medications: electronically signed and located in the Home Medication List. - Orders Services needed: Home Care, Physical Therapy Home Care Face to Face: I certify that this patient was under my care and that I had the required [id number] encounter meeting the encounter requirements on the discharge day. My findings support the fact that the patient is homebound as defined in Home Care Face to Face Continued: CMS Chapter 7 Medicare Benefits Manual 30.1.1 , The condition of the patient is such that there exists a normal inability to leave home and consequently, leaving home would require a considerable and taxing effort. Diet Recommendation: no restrictions on diet Diet Texture: Regular Texture Diet Additional Instructions: TOTAL JOINT ARTHROPLASTY DISCHARGE INSTRUCTIONS 1. Your surgeon follows the [facility] protocol for reducing your risk of DVT (blood clots) following surgery. Medication will be ordered to prevent blood clots. A sudden increase in calf pain and/or swelling could indicate a blood clot in your leg. If this occurs, please call your surgeon or his/her assistant farm operations manager. An ultrasound of the leg may be necessary to diagnose a blood clot. If you have conditions that make you a higher risk for blood clots, your surgeon may use more aggressive ways to prevent them. Notify your surgeon if you think you are a high risk for blood clots. 2. Wear your white surgical stockings (DUANE hose) for 2 weeks. This decreases your swelling and may help prevent blood clots. It is ok to remove DUANE hose at night time to give your legs a break. 3. Swelling and bruising in the surgical leg is common. If you feel that it is excessive, please notify your surgeon. 4. Elevate your surgical leg with the ankle above the hip several times every day. Please keep the leg straight when you elevate by putting pillows under your foot. Do not put pillows under your knee. This will make being able to fully straighten more difficult. This is uncomfortable, but try to do it as much as possible. 5. For total knee replacements use compressive wrap on your knee for 3-5 days after surgery, then you can discontinue it. 6. Use a walker or crutches for 1-2 weeks. Progress your weight-bearing as tolerated. You may start to use a cane when you feel stable and safe. 7. You will receive physical therapy instructions in the hospital. Continue those exercises at home. There are additional exercises in the total joint booklet you were given before surgery. Outpatient physical therapy will begin 7- 10 days after surgery. Please schedule this in advance. 8. Use ice on your knee at least 3-5 times every day for 30 minutes. This helps reduce pain and swelling. Also use it at night before falling asleep. 9. Leave your surgical dressing in place for 2 weeks. Your dressing is water resistant, but not waterproof. Cover it with Saran Wrap or Ihtmu-e-Kaap before showering. You may shower as soon as you feel safe entering a shower. If you notice bleeding from your incision 2 or 3 days after surgery, please notify your surgeon. 10. Due to narcotics, decreased activity and altered diet, most patients experience constipation after surgery. Use [id number] stool softeners while you are on narcotics. 11. You may drive a car when you are comfortable bearing weight, have good muscular control of your leg and are off narcotics. This usually occurs 2-4 weeks after surgery, depending on which leg was operated on. 12. If there are questions not addressed here, please refer the [facility] book given for more information. If you still have questions, please contact your surgeon s office. 13. If you have a life-threatening emergency, please call 911 and go to the emergency room immediately. For non-life threatening emergencies, please call your physicians office for advice before going to the emergency room. - Follow Up Care Current Providers and Referrals: Chaka Marshall MD [Medical Doctor] - Mc Dominique MD [Primary Care Provider] -
--- NOTE | 2018-02-06 07:16 | SOAPPROG ---
SOAP Progress Note Assessment/Plan: Assessment: s/p revision tka Plan:stable d/c home dvt precautions f/u at two weeks 02/06/18 07:15 Subjective: min pain no nausea no cp or sob Objective: Vital Signs Temp Pulse Resp BP Pulse Ox 36.6 C 62 16 121/78 H 93 02/06/18 04:00 02/06/18 04:00 02/06/18 04:00 02/06/18 04:00 02/06/18 04:00 Microbiology 02/05/18 15:45 Gram Stain - Final Knee - Aspirate 02/05/18 15:45 Gram Stain - Final Knee - Eswab 02/05/18 15:45 Mycobacterial Smear (RL) - Final Knee - Eswab Mycobacterial Culture - Final Laboratory Results 02/06/18 04:35 02/05/18 02/06/18 02/07/18 05:59 05:59 05:59 Intake Total 3700 Output Total 2650 Balance 1050 dressing intact intact pf,df,ehl toes warm and pink neg homans moriah xrays anatomic, no fx or lucency ICD10 Worksheet Patient Problems: Problems Problem Status Onset Arthritis of knee, right Acute
--- NOTE | 2018-02-06 07:49 | PDMN ---
Medical Necessity Medical necessity: [facility] [place]700 [place] OP: TKA --- AUTH [id number] APPROVED CPT 36765 IN PT IF MORE THAN ONE DAY MUST FAX ADDITIONAL CLINICAL INFORMATION TO [phone] MARILY
[2018-02-06 08:12] VITALS: BP 114/75
[2018-02-06] MEDS: oxyCODONE IR 5 MG TAB PO PRN ×2 (08:38→12:06)
[2018-02-06] MEDS: SENNOSIDES/DOCUSATE SODIUM TAB PO SCH (08:39)
[2018-02-06] MEDS: FAMOTIDINE 20 MG TAB PO SCH (08:39)
[2018-02-06] MEDS: ASPIRIN 325 MG TAB PO SCH (08:40)
[2018-02-06] MEDS ORDERED: amLODIPine BESYLATE 5 MG TAB PO SCH (09:00)
[2018-02-06] MEDS ORDERED: ATORVASTATIN CALCIUM 10 MG TAB PO SCH (09:00)
--- NOTE | 2018-02-06 10:21 | ASMTLACE ---
LACE Length of stay for Answers: 2 days current admission Acuity / Level of Answers: Yes Care: Did the patient have an inpatient admission? Comorbidities - select Answers: Opioid dependence all that apply / Chronic pain Other Notes: HTN # of Emergency department Answers: 0 visits in the last 6 months Social determinants Answers: Mental health diagnosis (anxiety, depression, pers onality disorders, etc.) Score: 13 Date Signed: 02/06/2018 10:21 AM Electronically Signed By:BE Scales
--- NOTE | 2018-02-06 10:24 | ASDISCHSUM ---
Discharge Information Plan Status:Home with Home Health Medically Cleared to Leave: Discharge Date: D/C Disposition:Home Health Service ADT D/C Disposition:Home Health Service Projected Discharge Date:02/06/2018 11:00 AM Transportation at D/C:Family Discharge Delay Reason: Follow-Up Date:02/06/2018 11:00 AM Discharge Slot: Final Diagnosis: Placement Information Referral Type:*Home Health Care Services Referral ID:[id number] Provider Name:[facility] Address 1:[address] Phone Number: Address 2: Fax Number: [facility]:[place] Selection Factors: State:[place] Patient Contact Information Contact Name:LILLIE Relationship: Address:[address] City:[place] Alternate Phone: State/[facility] Code:[place] [address] Email: Financial Information Financial Class:[facility] Primary Plan Desc:[employer] Primary Plan Number:[id number] Secondary Plan Desc: Secondary Plan Number: Assessment Information LACE LACE Length of stay for Answers: 2 days current admission Acuity / Level of Answers: Yes Care: Did the patient have an inpatient admission? Comorbidities - select Answers: Opioid dependence all that apply / Chronic pain Other Notes: HTN # of Emergency department Answers: 0 visits in the last 6 months Social determinants Answers: Mental health diagnosis (anxiety, depression, pers onality disorders, etc.) Score: 13 Date Signed: 02/06/2018 10:21 AM Electronically Signed By:BE Scales Case Management Discharge Plan Note Case Management Discharge Discharge Order Complete? Answers: Yes Patient to Obtain Answers: via Family Medications Transportation Arranged Answers: Family/Friends Faxed Final Orders Answers: Yes Agency/Facility Transfer Answers: Yes Report Printed & Faxed to Receiving Agency Family Notified Answers: Yes Discharge Comments Notes: CM met with pt and . Pt agreeable to homecare with [facility]. CM faxed discharge ppwk and confirmed appt. CM provided education on discharge plan, pts agreeable. No other CM needs identified. Family to transport. Date Signed: 02/06/2018 10:23 AM Electronically Signed By:BE Scales Intervention Information
--- NOTE | 2018-02-08 09:29 | GOP ---
DATE OF OPERATION: 02/05/2018 SURGEON: Chaka Marshall MD WARP DYEING TENDER: ANUJ Scott PREOPERATIVE DIAGNOSIS: Failed right total knee arthroplasty. POSTOPERATIVE DIAGNOSIS: Failed right total knee arthroplasty. PROCEDURE PERFORMED: Right total knee arthroplasty revision, tibial component. FINDINGS: SPECIMENS: To Pathology, none. INDICATIONS: The patient is a 62-year-old gentleman who is 1 year status post right total knee repla cement by myself. At that time, he had a 9 mm polyethylene spacer placed with a total knee replaceme nt. He has developed persistent pain and discomfort across his knee. Workup does not indicate any e vidence of infection. There is no evidence of gross mechanical loosening. He has slight asymmetry a nd laxity with varus and valgus stress. Given the persistent nature of his symptoms and laxity with varus and valgus stress, I have recommended revision of his tibial polyethylene spacer, soft tissue r emoval, and ligament balancing. I have outlined the surgical procedure, risks, benefits, and alterna tives. DESCRIPTION OF PROCEDURE: The patient was identified in the preanesthesia area. The right knee cristino rly demarcated as the operative site with an indelible marker. He was given 2 g of Ancef intravenous ly in route to the operative suite. In the OR, general endotracheal anesthesia was administered. At tention was turned to the right knee, which was sterilely prepped and draped in usual fashion. Tourn iquet was applied to the upper thigh. Appropriate time-out procedure was carried out. The limb was exsanguinated with an Esmarch bandage. Tourniquet inflated to 275 mmHg. The previous incision was opened in its entirety. The remaining Ethibond sutures were removed. The subperiosteal elevation was carried out to the mid coronal plane. The femoral and tibial components were examined thoroughly. There was no evidence of loosening or asymmetry. The polyethylene spacer was withdrawn. There was a great deal of scar tissue formation in the lateral gutter and lateral tib ial-femoral joint, which was sharply excised to a clean and stable edge. Soft tissue release was car ried out over the lateral aspect of the knee to balance the knee with a varus, valgus stress, and ult imately, a 13 mm polyethylene spacer was placed after trialing. This allowed full extension, flexion to 120 degrees. There was no instability to varus or valgus stress. The polyethylene was confirmed to be fully seated. The wound was copiously irrigated. The medial parapatellar arthrotomy closed using #1 Ethibond sutur e. Tissue injected with a joint cocktail of ropivacaine, morphine, Toradol, and epinephrine. The kn ee instilled with platelet-rich plasma solution. Subcutaneous tissue with 2-0 Monocryl, and the skin stapled. A sterile dressing was applied. The patient was awakened, extubated, and taken to the rec overy room in good and stable condition. TOTAL TOURNIQUET TIME: 45 minutes. COMPLICATIONS: None. IMPLANTS: A 13 mm polyethylene spacer. DISPOSITION: To the recovery room, then floor. He is weightbearing, range of motion as tolerated. /[id number]/MODL
--- NOTE | 2018-02-08 12:54 | GDS ---
GEOSPATIAL INTELLIGENCE ANALYST: Caren Szymanski. ADMIT DIAGNOSIS: Right failed total knee arthroplasty. POSTOPERATIVE DIAGNOSIS: Right failed total knee arthroplasty. PROCEDURE: Revision tibial component, right knee. OPERATIVE INDICATIONS: The patient is a 62-year-old gentleman who is 1 year status post right total knee replacement. He has symptomatic instability to his knee. There is no evidence of mechanical lo osening of his components and negative infection workup. Given his failure with conservative measure s, I have recommended surgical exploration with soft tissue release, exchange of the polyethylene and soft tissue balancing. I have outlined the surgical procedure, risks, benefits, and alternatives at length. He wishes to proceed. Appropriate consent was signed on the patient's chart. HOSPITAL COURSE: The patient was admitted to the hospital floor after uncomplicated total knee polye thylene exchange. He tolerated the procedure well. At the time of discharge, he is tolerating an or al diet. Pain is well controlled on oral medicines. He is voiding without difficulty. X-rays are s table with anatomic alignment. His knee is balanced with varus/valgus stress through the flexion-ext ension arc. DISCHARGE ACTIVITY: Weightbearing as tolerated. Range of motion as tolerated. Daily dressing flor es with a pressure dressing. Seek attention for increasing redness, swelling, drainage, discharge, o r other focal complaints. /[id number]/MODL
--- NOTE | 2018-02-09 09:09 | ASMTCMCOM ---
CM Note CM Note Notes: After several attempts to find Home Health Care for this patient post d/c, it was decided between myself, patient and to proceed with outpatient therapy with [facility]. All info faxed to [facility]. Patient has a rare [employer] plan with little to no benefit for HH, was unable to find a C agency that contracted with his plan. appreciative of CM's help. Date Signed: 02/09/2018 09:08 AM Electronically Signed By:Shreya Hooper RN
== END 2018-02-06 12:57 | disposition home health service (06) | DRG 468 ==
LOC: FSGY 11:41 → COP 11:41 → EDSTATUS 16:30 → F3N 16:39
PROVIDERS: ADMIT Orthopaedic Surgery; ATTEND Orthopaedic Surgery
DX: T84.022A Instability of internal right knee prosthesis, initial encounter (principal); I10 Essential (primary) hypertension; G47.30 Sleep apnea, unspecified; G62.9 Polyneuropathy, unspecified
CPT/HCPCS: 97116-GP; 97161-GP; 97165-GO; J0171; J0690; J1100; J1170; J1885; J2001; J2250; J2270; J2405; J2704; J2795; J3010; J3370

== ENCOUNTER → 2018-03-19 | Outpatient (CLI) | payer OTHER | LOC: BMCIMAGING 07:42 → EDSTATUS 08:51 | PROVIDERS: ATTEND Physician Assistant | DX: Z47.1 Aftercare following joint replacement surgery (principal); Z96.651 Presence of right artificial knee joint ==